=== PATIENT | male | born 1950 | race Caucasian/White ===

== ENCOUNTER 2019-02-21 09:05 | Inpatient (IN) | payer MEDICARE, OTHER ==
[2019-02-21] MEDS ORDERED: NORMAL SALINE 1000 ML 1,000 ML IV ONE ×2 (09:43→13:52)
[2019-02-21] MEDS ORDERED: METOCLOPRAMIDE HCL INJ/PF 10 MG/2 ML SDV IV ONE (09:44)
[2019-02-21 10:05] LABS: ABSOLUTE EOSINOPHILS # (AUTO) 0.1 10^3/uL (0.0-0.6); ABSOLUTE LYMPHOCYTES (AUTO) 0.6 10^3/uL (0.5-4.7); ABSOLUTE MONOCYTES (AUTO) 0.6 10^3/uL (0.1-1.4); ABSOLUTE NEUT (AUTO) 4.2 10^3/uL (1.7-8.2); BASOPHILS % (AUTO) 0.4 % (0-2); EOSINOPHILS % (AUTO) 2.6 % (0-6); HEMOGLOBIN 13.6 g/dL (13.5-17.0); LYMPHOCYTES % (AUTO) 10.5 % (13-45); MEAN CORPUSCULAR HEMOGLOBIN 31.1 pg (27.0-33.4); MEAN CORPUSCULAR HGB CONC 34.9 g/dL (32.0-36.0); MEAN CORPUSCULAR VOLUME 89 fl (80-97); MONOCYTES % (AUTO) 11.3 % (3-13); PLATELET COUNT 201 10^3/uL (150-450); RED BLOOD COUNT 4.38 10^6/uL (4.35-5.55); RED CELL DISTRIBUTION WIDTH 14.4 % (11.5-14.0); SEGMENTED NEUTROPHILS % (AUTO) 75.2 % (42-78); TOTAL CELLS COUNTED % (AUTO) 100 %; WHITE BLOOD COUNT 5.6 10^3/uL (4.0-10.5)
--- NOTE | 2019-02-21 10:05 | ER Document Report ---
Entered by KENZIE DELGADO SCRIBE 02/21/19 0932 Acting as scribe for:CHASE RANGEL MD ED GI/ - General Chief Complaint: Vomiting Stated Complaint: NAUSEA,HEADACHE,VOMITING Time Seen by Provider: 02/21/19 09:28 Information source: Patient Notes: Patient is a 68 year old male with small cell lung cancer with metastasis to the brain that presents today with complaints of nausea/vomiting which began 1-2 hours prior to arrival. Patient reports that he is visiting the area from [place]. Patient was admitted for hyponatremia with a sodium 116 several days ago, discharged on 02/13 with a sodium of 128. Patient states that on 02/16 he had a routine visit to his doctor and his sodium was back down to 124, he was started on salt tablets. Patient states that he is prescribed Zofran for nausea but he does not take it anymore due to causing extreme constipation. Patient denies any abdominal pain. TRAVEL OUTSIDE OF THE [place] IN LAST 30 DAYS: No - Related Data Allergies/Adverse Reactions: amoxicillin Allergy (Verified 02/21/19 09:12) Past Medical History - General Information source: Patient - Social History Smoking Status: Former Smoker Cigarette use (# per day): No Chew tobacco use (# tins/day): No Smoking Education Provided: No Frequency of alcohol use: None Drug Abuse: None Lives with: Family Family History: Reviewed & Not Pertinent Patient has suicidal ideation: No Patient has homicidal ideation: No - Past Medical History Cardiac Medical History: Reports: Hx Hypercholesterolemia, Hx Hypertension Pulmonary Medical History: Reports: Hx Asthma, Hx COPD Renal/ Medical History: Reports: Hx Benign Prostatic Hyperplasia Malignancy Medical History: Reports Hx Lung Cancer - w/ mets to brain (reports recent MRI showed no more mets) Review of Systems - Review of Systems Constitutional: No symptoms reported EENT: No symptoms reported Cardiovascular: No symptoms reported Respiratory: No symptoms reported Gastrointestinal: See HPI, Nausea, Vomiting. denies: Abdominal pain Genitourinary: No symptoms reported Male Genitourinary: No symptoms reported Musculoskeletal: No symptoms reported Skin: No symptoms reported Hematologic/Lymphatic: No symptoms reported Neurological/Psychological: No symptoms reported -: Yes All other systems reviewed and negative Physical Exam - Vital signs Vitals: Temp Pulse Resp BP Pulse Ox 97.4 F 70 15 132/76 H 93 02/21/19 09:11 02/21/19 09:11 02/21/19 09:11 02/21/19 09:11 02/21/19 09:11 - Notes Notes: Physical Exam: General: Alert, appears well. HEENT: Normocephalic. Atraumatic. PERRL. Extraocular movements intact. Oropharynx clear. Neck: Supple. Non-tender. Respiratory: No respiratory distress. Clear and equal breath sounds bilaterally. Cardiovascular: Regular rate and rhythm. Abdominal: Normal Inspection. Non-tender. No distension. Normal Bowel Sounds. Back: No gross abnormalities. Extremities: Moves all four extremities. Upper extremities: Normal inspection. Normal ROM. Lower extremities: Normal inspection. No edema. Normal ROM. Neurological: Normal cognition. AAOx4. Normal speech. Psychological: Normal affect. Normal Mood. Skin: Warm. Dry. Normal color. Course - Re-evaluation Re-evalutation: 02/21/19 12:59 The patient serum sodium is 122.2, and discussing with the patient and his spouse it appears that the nausea may be related to low sodium, and possibly was never related to the Namenda. Since the patient had a sodium 124 a few days ago and was started on salt tablets, this is concerning that his sodium level continues to drop. - Vital Signs Vital signs: Temp Pulse Resp BP Pulse Ox 97.4 F 70 15 132/76 H 93 02/21/19 09:11 02/21/19 09:11 02/21/19 09:11 02/21/19 09:11 02/21/19 09:11 - Laboratory Result Diagrams: 02/21/19 09:51 02/21/19 09:51 Laboratory results interpreted by me: 02/21/19 02/21/19 09:51 09:51 RDW 14.4 H Lymph % (Auto) 10.5 L Sodium 122.2 L Chloride 85 L Creatine Kinase 241 H - EKG Interpretation by [place] EKG shows normal: Sinus rhythm, [place], Intervals, ST-T Waves. abnormal: QRS Complexes - Consider anterior infarct Rate: Normal - 65 Rhythm: NSR [place]/QRS: IVCD When compared to previous EKG there are: Previous EKG unavailable - Consults CHEN Vasquez Time consulted: 12:48 Consulted provider: will come to ER Discharge - Discharge Clinical Impression: Hyponatremia Nausea and vomiting Qualifiers: Vomiting type: unspecified Vomiting Intractability: non-intractable Qualified Code(s): R11.2 - Nausea with vomiting, unspecified Condition: Stable Disposition: ADMITTED OBSERVATION Admitting Provider: Roni (Hospitalist) Unit Admitted: Medical Floor Scribe Attestation: 02/21/19 10:17 I personally performed the services described in the documentation, reviewed and edited the documentation which was dictated to the scribe in my presence, and it accurately records my words and actions. I personally performed the services described in the documentation, reviewed and edited the documentation which was dictated to the scribe in my presence, and it accurately records my words and actions.
[2019-02-21 10:24] LABS: ALBUMIN 4.3 g/dL (3.5-5.0); ALKALINE PHOSPHATASE 46 U/L (38-126); ANION GAP 12 (5-19); ASPARTATE AMINO TRANSFERASE 28 U/L (17-59); BILIRUBIN,DIRECT 0.1 mg/dL (0.0-0.4); BILIRUBIN,TOTAL 0.6 mg/dL (0.2-1.3); BLOOD UREA NITROGEN 12 mg/dL (7-20); CALCIUM 9.3 mg/dL (8.4-10.2); CARBON DIOXIDE 25 mmol/L (22-30); CHLORIDE 85 mmol/L (98-107); CREATINE KINASE 241 U/L (55-170); GLUCOSE 101 mg/dL (75-110); POTASSIUM 4.9 mmol/L (3.6-5.0); TOTAL PROTEIN 6.5 g/dL (6.3-8.2)
[2019-02-21 11:56] LABS: AMORPHOUS SEDIMENT,URINE TRACE /HPF; APPEARANCE,URINE CLOUDY; BILIRUBIN,URINE NEGATIVE (NEGATIVE); COLOR,URINE YELLOW; GLUCOSE, URINE NEGATIVE (NEGATIVE); KETONES,URINE NEGATIVE (NEGATIVE); LEUKOCYTE ESTERASE,URINE NEGATIVE (NEGATIVE); NITRITE,URINE NEGATIVE (NEGATIVE); PROTEIN,URINE NEGATIVE (NEGATIVE); URINE SPECIFIC GRAVITY 1.014; UROBILINOGEN,URINE NEGATIVE mg/dL (<2.0)
[2019-02-21] MEDS ORDERED: NORMAL SALINE 1000 ML 1,000 ML IV PRN (13:54)
[2019-02-21] MEDS ORDERED: MAGNESIUM HYDROXIDE SUSP 30 ML UDCUP PO PRN (14:06)
[2019-02-21] MEDS ORDERED: ACETAMINOPHEN 325 MG TABLET PO PRN (14:06)
--- NOTE | 2019-02-21 14:23 | PDOC H&P ---
History of Present Illness Admission Date/PCP: 02/21/19 13:07 History of Present Illness: Amaya KIM is a 68 year old male who comes in with history of vomiting x1 today. He is down here vacationing from [place]. Scheduled to return to [place] in 1 week. patient has a long and complicated history began with being diagnosed with small cell lung cancer Kristina I believe in May 2018. In October he was diagnosed with mets to the brain and underwent radiation for 10 days. Recently February 11 and he was in an emergency room and admitted for sodium of 116 however at the time of discharge her to gone up to 128 there is some question as to whether this hyponatremia was caused by Namenda or Zofran or by his brain mets. He feels like the Zofran caused constipation. At any rate last week on the in the doctor's office his sodium was 124, and his doctor in [place] told him it was safe to come down here to [place] to vacation. This morning after eating and oriented she got sick and vomited x1 when he came to the emergency room his sodium was 122 Was called because ER physician did not know whether the patient vomited because of his sodium of 122 for some other reason. Patient states that last week when he was seen in the doctor's office with his sodium 124 he was given salt tablets to take patient has had no vomiting since this morning patient states he is not nauseated at this time he was given Reglan in the ER I believe the patient was a lso given a liter of fluids in the ER.. 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 Pulmonary Medical History: Reports: Asthma, Chronic Obstructive Pulmonary Disease (COPD), Other - Small cell lung cancer Neurological Medical History: Reports: Other - Brain mets Malignancy Medical History: Reports: Lung Cancer - w/ mets to brain (reports recent MRI showed no more mets) Psychiatric Medical History: Reports: None Social History Lives with: Family Smoking Status: Former Smoker - Advance Directive Resuscitation Status: Full Code Family History Family History: Reviewed & Not Pertinent Parental Family History Reviewed: No Children Family History Reviewed: No Sibling(s) Family History Reviewed.: No Medication/Allergy Allergies/Adverse Reactions: amoxicillin Allergy (Verified 02/21/19 09:12) Review of Systems Constitutional: PRESENT: other - No nausea now. ABSENT: chills, fever(s), headache(s), weight gain, weight loss Respiratory: ABSENT: cough, hemoptysis Gastrointestinal: ABSENT: abdominal pain, constipation, diarrhea, hematemesis, hematochezia, nausea, vomiting Neurological: PRESENT: other - Slight headache. ABSENT: abnormal gait, abnormal speech, confusion, dizziness, focal weakness, syncope Psychiatric: ABSENT: anxiety, depression, homidical ideation, suicidal ideation Physical Exam Vital Signs: Temp Pulse Resp BP Pulse Ox 97.4 F 70 15 132/76 H 93 02/21/19 09:11 02/21/19 09:11 02/21/19 09:11 02/21/19 09:11 02/21/19 09:11 Intake & Output 02/20/19 02/21/19 02/22/19 06:59 06:59 06:59 Intake Total 1000 Balance 1000 Weight 99.9 kg General appearance: PRESENT: no acute distress, other - is in the room Respiratory exam: PRESENT: clear to auscultation clay. ABSENT: rales, rhonchi, wheezes Cardiovascular exam: PRESENT: RRR. ABSENT: diastolic murmur, rubs, systolic murmur Pulses: PRESENT: normal dorsalis pedis pul GI/Abdominal exam: PRESENT: normal bowel sounds, soft. ABSENT: distended, guarding, mass, organolmegaly, rebound, tenderness Neurological exam: PRESENT: alert, awake, oriented to person, oriented to place, oriented to time, oriented to situation, CN II-XII grossly intact. ABSENT: motor sensory deficit Psychiatric exam: PRESENT: appropriate affect, normal mood. ABSENT: homicidal ideation, suicidal ideation Results Laboratory Results: 02/21/19 09:51 02/21/19 09:51 02/21/19 02/21/19 02/21/19 09:51 09:51 11:30 WBC 5.6 RBC 4.38 Hgb 13.6 Hct 39.0 MCV 89 MCH 31.1 MCHC 34.9 RDW 14.4 H Plt Count 201 Seg Neutrophils % 75.2 Sodium 122.2 L Potassium 4.9 Chloride 85 L Carbon Dioxide 25 Anion Gap 12 BUN 12 Creatinine 0.69 Est GFR ( Amer) > 60 Glucose 101 Calcium 9.3 Magnesium 1.9 Total Bilirubin 0.6 AST 28 Alkaline Phosphatase 46 Total Protein 6.5 Albumin 4.3 Urine Color YELLOW Urine Appearance CLOUDY Urine pH 7.0 Ur Specific [place] 1.014 Urine Protein NEGATIVE Urine Glucose (UA) NEGATIVE Urine Ketones NEGATIVE Urine Blood NEGATIVE Urine Nitrite NEGATIVE Ur Leukocyte Esterase NEGATIVE Urine WBC (Auto) 2 02/21/19 02/21/19 09:51 09:51 Creatine Kinase 241 H Troponin I < 0.012 Assessment and Plan - Diagnosis (1) Hypertension Is this a current diagnosis for this admission?: Yes Plan: Tells me he takes lisinopril although the dosage is not known at this time. Blood pressure in the ER is 132/76 (2) Small cell lung cancer Is this a current diagnosis for this admission?: Yes Plan: Patient has had chemotherapy back in May 2018. Patient is scheduled for CT scan of abdomen and chest in March (3) Metastasis to brain Is this a current diagnosis for this admission?: Yes Plan: Patient had 10 days of therapy in October and November of this year (4) Hyponatremia Is this a current diagnosis for this admission?: Yes Plan: Patient's sodium today is 122 prior to leaving [place] 5 days ago is 124 and about a week before that after discharge from the hospital it was 128 Patient states when he went into the hospital for hyponatremia weeks ago it was 116 (5) Nausea and vomiting Qualifiers: Vomiting type: unspecified Vomiting Intractability: non-intractable Qualified Code(s): R11.2 - Nausea with vomiting, unspecified Is this a current diagnosis for this admission?: Yes Plan: She states he vomited one time this morning and at the present time has no nausea - Time Time Spent with patient: 35 or more minutes
[2019-02-21] MEDS: DOCUSATE SODIUM 100 MG CAPSULE PO SCH (16:02)
[2019-02-21] MEDS: ENOXAPARIN SODIUM INJ 40 MG/0.4 ML DISP.SYRIN SUBCUT SCH (16:02)
[2019-02-21] MEDS: METOCLOPRAMIDE HCL 10 MG TABLET PO SCH ×2 (16:13→23:13)
--- NOTE | 2019-02-21 17:37 | EKG REPORT ---
SEVERITY:- ABNORMAL ECG - SINUS RHYTHM NONSPECIFIC INTRAVENTRICULAR CONDUCTION DELAY CONSIDER ANTERIOR INFARCT : Confirmed by: Pedro Cruz MD 21-Feb-2019 17:37:00
--- NOTE | 2019-02-21 17:47 | RADIOLOGY REPORT (SQ) ---
EXAM DESCRIPTION: CHEST SINGLE VIEW COMPLETED DATE/TIME: 02/21/2019 5:28 pm REASON FOR STUDY: small cell ca COMPARISON: None. TECHNIQUE: Single frontal radiographic view of the chest acquired. NUMBER OF VIEWS: One view. LIMITATIONS: None. FINDINGS: LUNGS AND PLEURA: No pneumothorax. Left basilar subsegmental atelectasis and small pleura l effusion. MEDIASTINUM AND HILAR STRUCTURES: Normal contour. HEART AND VASCULAR STRUCTURES: Normal size. BONES: No acute findings. HARDWARE: None in the chest. OTHER: No other significant finding. IMPRESSION: Left basilar subsegmental atelectasis and small pleural effusion. TECHNICAL DOCUMENTATION: JOB ID: [id number] [id number] 2010 [place] [employer]- All Rights Reserved Reading location - IP/workstation name: [employer]
[2019-02-21 17:55] LABS: ANION GAP 11 (5-19); BLOOD UREA NITROGEN 10 mg/dL (7-20); CARBON DIOXIDE 24 mmol/L (22-30); CHLORIDE 87 mmol/L (98-107); GLUCOSE 99 mg/dL (75-110); POTASSIUM 4.6 mmol/L (3.6-5.0)
[2019-02-21] MEDS: FAMOTIDINE 20 MG TABLET PO SCH (23:13)
[2019-02-22] MEDS: PROMETHAZINE HCL INJ 25 MG/1 ML VIAL IV PRN ×2 (05:37→13:00)
[2019-02-22 06:32] LABS: BLOOD UREA NITROGEN 11 mg/dL (7-20); CALCIUM 8.8 mg/dL (8.4-10.2); CARBON DIOXIDE 23 mmol/L (22-30); CHLORIDE 85 mmol/L (98-107); GLUCOSE 90 mg/dL (75-110); POTASSIUM 4.4 mmol/L (3.6-5.0)
[2019-02-22 06:33] LABS: ANION GAP 11 (5-19)
[2019-02-22] MEDS: METOCLOPRAMIDE HCL 10 MG TABLET PO SCH ×4 (08:07→21:37)
[2019-02-22] MEDS: DOCUSATE SODIUM 100 MG CAPSULE PO SCH (09:38)
[2019-02-22] MEDS: ENOXAPARIN SODIUM INJ 40 MG/0.4 ML DISP.SYRIN SUBCUT SCH (09:38)
[2019-02-22] MEDS: FAMOTIDINE 20 MG TABLET PO SCH ×2 (10:20→21:38)
[2019-02-22] MEDS: LISINOPRIL 10 MG TABLET PO SCH (10:20)
[2019-02-22] MEDS: LORATADINE 10 MG TABLET PO SCH (10:21)
[2019-02-22 11:23] LABS: OSMOLALITY,URINE 467 mOsm/kg (300-900)
[2019-02-22 11:31] LABS: URINE SODIUM 154 mmol/L (30-90)
--- NOTE | 2019-02-22 12:38 | PDOC PROGRESS REPORT ---
Subjective Progress Note for:: 02/22/19 Subjective:: Patient is being admitted for hyponatremia and SIADH. Reason For Visit: HYPONATREMIA,SMALL CELL LUNG CANCER,BRAIN METS, Physical Exam Vital Signs: Temp Pulse Resp BP Pulse Ox 97.7 F 64 15 132/66 H 97 02/22/19 08:21 02/22/19 08:21 02/22/19 08:21 02/22/19 08:21 02/22/19 08:21 Intake & Output 02/21/19 02/22/19 02/23/19 06:59 06:59 06:59 Intake Total 3240 240 Balance 3240 240 Weight 92.9 kg General appearance: PRESENT: no acute distress, other - Patient had one episode of vomiting yesterday morning prior to coming to the emergency room but no vomiting since. Patient was nauseated last night and received his Reglan but also received a dose of Phenergan which he stated seem to help Respiratory exam: PRESENT: clear to auscultation clay. ABSENT: rales, rhonchi, wheezes Cardiovascular exam: PRESENT: RRR. ABSENT: diastolic murmur, rubs, systolic murmur Neurological exam: PRESENT: alert, awake, oriented to person, oriented to place, oriented to time, oriented to situation, CN II-XII grossly intact, other - Patient has no neurologic deficits. ABSENT: motor sensory deficit Psychiatric exam: PRESENT: appropriate affect, normal mood, other - Patient appears very relaxed and calm. ABSENT: homicidal ideation, suicidal ideation Results Laboratory Results: 02/21/19 09:51 02/22/19 05:52 02/21/19 02/21/19 02/21/19 09:51 11:30 17:10 Sodium 121.6 L Potassium 4.6 Chloride 87 L Carbon Dioxide 24 Anion Gap 11 BUN 10 Creatinine 0.65 Est GFR ( Amer) > 60 Glucose 99 Serum Osmolality 251 L Calcium 9.0 Magnesium Urine Osmolality 600 02/22/19 02/22/19 02/22/19 05:52 05:52 10:35 Sodium 118.9 L* Potassium 4.4 Chloride 85 L Carbon Dioxide 23 Anion Gap 11 BUN 11 Creatinine 0.68 Est GFR ( Amer) > 60 Glucose 90 Serum Osmolality 243 L Calcium 8.8 Magnesium 1.8 Urine Osmolality 467 02/21/19 02/21/19 09:51 09:51 Creatine Kinase 241 H Troponin I < 0.012 Impressions: Chest X-Ray 02/21/19 00:00 IMPRESSION: Left basilar subsegmental atelectasis and small pleural effusion. Assessment and Plan - Diagnosis (1) Hypertension Is this a current diagnosis for this admission?: Yes Plan: Tells me he takes lisinopril although the dosage is not in chart not known at this time. Blood pressure in the ER is 132/76 02/22/2019 morning at approximately 8:00 blood pressure is 132/66. Patient's home meds were in the chart this morning therefore his lisinopril 10 mg daily was resumed (2) Small cell lung cancer Is this a current diagnosis for this admission?: Yes Plan: Patient has had chemotherapy back in May 2018. Patient is scheduled for CT scan of abdomen and chest in 02/22/2019 patient's chest x-ray from yesterday single view portable showed just some minimal atelectasis and a small pleural effusion on the left (3) Metastasis to brain Is this a current diagnosis for this admission?: Yes Plan: Patient had 10 days of therapy in October and November of this year 02/22/2019 CT head scan nor MRI brain scan have been ordered. No previous studies to compare to and patient is neurologically intact. (4) Hyponatremia Is this a current diagnosis for this admission?: Yes Plan: Patient's sodium today is 122 prior to leaving [place] 5 days ago is 124 and about a week before that after discharge from the hospital it was 128 Patient states when he went into the hospital for hyponatremia weeks ago it was 116 02/22/2019 patient's labs are being followed closely. Unfortunately did not get a report back on his urine sodium until 8 PM last night. Patient does not appear to be dehydrated or hypovolemic agraffe sodium on admission was 122.227 hours later is 121.6 and this morning about 18 hours later from the original it was 118.9 Initial serum osmolality was 251 today it is gone down to 243 Initial urine osmolality was 600 this morning is gone down to 467 Initial urine sodium last night was 189 and this morning it is gone down to 154 Patient was placed on the thousand cc fluid restriction last night After discussing the case with Dr. Morales he has made a good suggestion to consult nephrology. This is been placed in the chart. I had a discussion with the patient and his this morning and told him that it would take time for this to correct. Certainly we do not want to overshoot in create a problem by giving him too quickly a higher sodium level since he is asymptomatic at this time. Will wait nephrology's opinion, and continue fluid restriction in the meantime. Certainly have considered all options including 3% sodium fluids, as well as medication such as tolvaptan. Inform the patient that nephrology has been consulted and he seems satisfied with that. (5) Nausea and vomiting Qualifiers: Vomiting type: unspecified Vomiting Intractability: non-intractable Qualified Code(s): R11.2 - Nausea with vomiting, unspecified Is this a current diagnosis for this admission?: Yes Plan: He states he vomited one time this morning and at the present time has no nausea 02/22/2019 patient states he has had no vomiting since admission, though he was nauseated last night patient received Phenergan 12.5 mg IV at approximately 530 this morning in addition to his scheduled Reglan and Pepcid - Time Time Spent with patient: 35 or more minutes
--- NOTE | 2019-02-22 18:01 | Progress Note ---
Provider Note Provider Note: For some reason Dr. Fairbanks did not get the consult through the computer Dr. Fairbanks the calciner operator helper viewed the patient's lab work and we discussed his case for 15 minutes [address] the phone[address] Dr. Fairbanks is going to review the lab work from [facility] and then make recommendations concerning siadh. Change fluid restrictions to 750 mL's and 24 period. This will be down from 1000 Magdi suggest the possibility of giving a 3% sodium IV solution over 4 hours, patient however is reluctant to do this and this will be discussed with Dr. Fairbanks. I discussed this with the patient and his family in the room [facility]. I told him I would talk to them after [facility]'s lab work and after I speak with Dr. Fairbanks
[2019-02-22 18:52] LABS: ANION GAP 12 (5-19); BLOOD UREA NITROGEN 13 mg/dL (7-20); CALCIUM 8.9 mg/dL (8.4-10.2); CARBON DIOXIDE 24 mmol/L (22-30); CHLORIDE 82 mmol/L (98-107); GLUCOSE 108 mg/dL (75-110); POTASSIUM 4.2 mmol/L (3.6-5.0)
--- NOTE | 2019-02-22 20:15 | Progress Note ---
Provider Note Provider Note: 02/22/[address] Magdi frankel after the most recent labs sodium is now 117.7 chloride 82 serum osmolality 242 her and studies are pending. Dr. Fairbanks suggested a 3% sodium solution however I informed him that the patient really would rather not do this treatment asked about alternative. Graph Dr. Fairbanks had spoken about this and so Dr. Fairbanks recommended Samsca, Tolvaptan, 15 mg daily. We are going to check labs every 12 hours that would include a Chem-7 serum osmolality urine osmolality and a urine sodium based on the increase in serum sodium as to whether or not the patient gets another dose of this medication tomorrow evening. Magdi is going to see the patient tomorrow morning officially although he is spent a great deal of time reviewing the chart and discussing the case with me already.. The patient and his and I discussed this treatment option marlys patient seems satisfied as the plan was outlined to him Goal is to try to get his sodium up into the mid 120s of that he can be discharged and make the trip back to [place] to see his oncologist. Patient's fluid restriction is now 750 mL's and actually changed order this afternoon already down from 1000 Dx. SIADH, small cell carcinoma, history of brain metastasis, hypertension
[2019-02-22] MEDS ORDERED: TOLVAPTAN 15 MG TABLET PO SCH (20:30)
[2019-02-22] MEDS ORDERED: TAMSULOSIN HCL 0.4 MG CAP.SR.24H PO SCH (22:00)
[2019-02-23 05:54] LABS: ANION GAP 11 (5-19); BLOOD UREA NITROGEN 11 mg/dL (7-20); CALCIUM 9.7 mg/dL (8.4-10.2); CARBON DIOXIDE 25 mmol/L (22-30); CHLORIDE 90 mmol/L (98-107); GLUCOSE 94 mg/dL (75-110); POTASSIUM 4.6 mmol/L (3.6-5.0)
[2019-02-23] MEDS: METOCLOPRAMIDE HCL 10 MG TABLET PO SCH (08:21)
[2019-02-23 09:09] VITALS: BP 107/58
[2019-02-23 09:14] LABS: URINE SODIUM 7 mmol/L (30-90)
[2019-02-23 09:35] LABS: OSMOLALITY,URINE 93 mOsm/kg (300-900)
[2019-02-23] MEDS: DOCUSATE SODIUM 100 MG CAPSULE PO SCH (10:23)
[2019-02-23] MEDS: ENOXAPARIN SODIUM INJ 40 MG/0.4 ML DISP.SYRIN SUBCUT SCH (10:23)
[2019-02-23] MEDS: LISINOPRIL 10 MG TABLET PO SCH (10:26)
[2019-02-23] MEDS: FAMOTIDINE 20 MG TABLET PO SCH (10:27)
[2019-02-23] MEDS: LORATADINE 10 MG TABLET PO SCH (10:27)
--- NOTE | 2019-02-23 14:59 | PDOC CONSULTATION ---
Consultation Consult Date: 02/23/19 Provider Consulted: Shoshana BRITO Consult reason:: Hyponatremia History of Present Illness Admission Date/PCP: 02/22/19 11:15 History of Present Illness: Amaya KIM is a 68 year old male with history of metastatic non-small cell cancer of the lungs diagnosed in April 2018 treated with chemo was admitted with history of feeling weak and a couple of episodes of vomiting. He is visiting here from [place] on a vacation. He says his labs had shown normal sodium in the upper 130s till about 3 weeks ago when he was found to have a sodium that dropped as low as 117. He was given certain medications and fluids and his last sodium before he left [place] was 124. He says he was told to take salt tablets and if he felt bad he was to visit the local ER. The patient began to get progressively weak approximately a day prior to his visit to the ER along with vomiting and was found to have a sodium of 120. He was begun on IV fluids and then his sodium dropped to 117. Patient now has had his normal saline withheld and has been put on fluid restrictions. Yesterday, I had a long chat with the hospitalist Malcom mcduffie and decided that patient should be given some amount of 3% saline which the patient declined. In lieu of that he was begun on tolvaptan 15 mg x 1 dose was given yesterday. Today his sodium is 127 and he feels back to his baseline. He states he does not feel weak and tired and would like to go back and enjoys few more days of vacation before he leaves back for [place] this coming Friday. His and son is by the bedside. He has had a good meal today and is happy with the fluid restrictions. 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 Pulmonary Medical History: Reports: Asthma, Chronic Obstructive Pulmonary Disease (COPD), Other - Small cell lung cancer Neurological Medical History: Reports: Other - Brain mets Renal/ Medical History: Reports: Benign Prostatic Hyperplasia Malignancy Medical History: Reports: Lung Cancer - w/ mets to brain (reports recent MRI showed no more mets) Psychiatric Medical History: Reports: None Social History Lives with: Family Smoking Status: Former Smoker - Advance Directive Resuscitation Status: Full Code Family History Parental Family History Reviewed: No Children Family History Reviewed: No Sibling(s) Family History Reviewed.: No Medication/Allergy Home Medications: Fluticasone/Salmeterol [Fluticasone-Salmeterol 113-14] 1 puff IH Q12 02/21/19 Ipratropium/Albuterol Sulfate [Combivent Respimat 4 gm Mdi] 1 puff IH TIDP PRN MDD 4 PUFFS 02/21/19 Lisinopril [Prinivil 10 mg Tablet] 10 mg PO DAILY 02/21/19 Loratadine [Claritin 10 mg Tablet] 10 mg PO DAILY 02/21/19 Rosuvastatin Calcium 40 mg PO QHS 02/21/19 Tamsulosin HCl [Flomax 0.4 mg Cap.sr] 0.4 mg PO DAILY 02/21/19 Zolpidem Tartrate [Ambien 5 mg Tablet] 10 mg PO HSP PRN 02/21/19 Allergies/Adverse Reactions: amoxicillin Allergy (Verified 02/21/19 09:12) Review of Systems Constitutional: PRESENT: fatigue, weakness. ABSENT: anorexia, chills, fever(s), headache(s), night sweats Nose, Mouth, and Throat: ABSENT: mouth pain, sore throat Cardiovascular: ABSENT: chest pain, dyspnea on exertion, edema, orthropnea, palpitations Respiratory: ABSENT: dyspnea, hemoptysis Gastrointestinal: ABSENT: abdominal pain, bloating, coffee ground emesis, diarrhea, dysphagia, heartburn, hematemesis, hematochezia Integumentary: ABSENT: lesions, pruritus, rash Neurological: ABSENT: abnormal movements, abnormal speech, confusion, convulsions, focal weakness, frequent falls, lack of coordination Psychiatric: ABSENT: suicidal ideation Endocrine: ABSENT: flushing, polydipsia Hematologic/Lymphatic: ABSENT: easy bleeding, easy bruising, lymphadenopathy Physical Exam Vital Signs: Temp Pulse Resp BP Pulse Ox 98.2 F 69 16 107/58 L 95 02/23/19 11:25 02/23/19 11:25 02/23/19 11:25 02/23/19 07:34 02/23/19 11:25 Intake & Output 02/22/19 02/23/19 02/24/19 06:59 06:59 06:59 Intake Total 3240 1125 Balance 3240 1125 Weight 92.9 kg 97.4 kg General appearance: PRESENT: no acute distress Eye exam: PRESENT: EOMI, PERRLA Ear exam: PRESENT: normal external ear exam Mouth exam: PRESENT: moist, neck supple Neck exam: ABSENT: lymphadenopathy, meningismus, tenderness, thyromegaly, tr acheal deviation Respiratory exam: PRESENT: clear to auscultation clay. ABSENT: crackles Cardiovascular exam: PRESENT: +S1, +S2 GI/Abdominal exam: PRESENT: normal bowel sounds, soft. ABSENT: organomegaly, tenderness Extremities exam: ABSENT: pedal edema Neurological exam: PRESENT: alert, awake, oriented to person, oriented to place, oriented to time Psychiatric exam: PRESENT: appropriate affect Skin exam: ABSENT: erythema, mottled, rash Results Laboratory Results: 02/21/19 09:51 02/23/19 04:54 02/22/19 02/22/19 02/22/19 17:56 17:56 19:17 Sodium 117.7 L* Potassium 4.2 Chloride 82 L Carbon Dioxide 24 Anion Gap 12 BUN 13 Creatinine 0.82 Est GFR ( Amer) > 60 Glucose 108 Serum Osmolality 242 L Calcium 8.9 Magnesium Urine Osmolality 530 02/23/19 02/23/19 02/23/19 04:54 04:54 05:40 Sodium 126.1 L Potassium 4.6 Chloride 90 L Carbon Dioxide 25 Anion Gap 11 BUN 11 Creatinine 0.83 Est GFR ( Amer) > 60 Glucose 94 Serum Osmolality 255 L Calcium 9.7 Magnesium 2.2 Urine Osmolality Cancelled 02/23/19 02/23/19 07:16 08:21 Sodium Potassium Chloride Carbon Dioxide Anion Gap BUN Creatinine Est GFR ( Amer) Glucose Serum Osmolality Calcium Magnesium Urine Osmolality Cancelled 93 L 02/21/19 02/21/19 09:51 09:51 Creatine Kinase 241 H Troponin I < 0.012 Impressions: Chest X-Ray 02/21/19 00:00 IMPRESSION: Left basilar subsegmental atelectasis and small pleural effusion. Assessment & Plan - Diagnosis (1) Hyponatremia Is this a current diagnosis for this admission?: Yes Plan: Patient has a SIADH. He has responded to fluid restriction and tolvaptan. Patient is back to baseline as his sodium has been in the mid to high 120s for the last 2 to 3 weeks. I am okay in discharging the patient on tolvaptan 15 mg every other day for which I given him prescription. I have also asked to get his labs done this and then next Friday after he reaches [place]. Advised patient to call me on evening to discuss labs over the telephone. Advised the patient and his that he should go to the ER if he feels not his usual self in the next few days while he is here.Discussed the patient questions at length and answered questions from his and son. Also discussed the case with Dr. Murillo who is the covering hospitalist. (2) Small cell lung cancer Is this a current diagnosis for this admission?: Yes Plan: Metastatic. Status post chemo with recent mets to the brain for which she had extensive whole brain radiation.
--- NOTE | 2019-02-23 15:13 | PDOC DISCHARGE SUMMARY ---
General - Admit/Disc Date/PCP Admission Date/Primary Care Provider: 02/22/19 11:15 Discharge Date: 02/23/19 - Discharge Diagnosis (1) Hyponatremia Is this a current diagnosis for this admission?: Yes Summary: Dr. Fairbanks was consulted, and when he did not respond to normal saline he was given some tolvaptan with good effect. He will take it every other day while he was here visiting family and will have labs redrawn on to be followed up by Dr. Fairbanks. (2) Nausea and vomiting Is this a current diagnosis for this admission?: Yes Summary: Resolved once his sodium came up (3) Small cell lung cancer Is this a current diagnosis for this admission?: Yes Summary: He will follow-up with his oncologist back in [place] - Additional Information Resuscitation Status: Full Code Discharge Diet: Cardiac Discharge Activity: Balance Activity w/Rest, Slowly Increase Activity Home Medications: Fluticasone/Salmeterol [Fluticasone-Salmeterol 113-14] 1 puff IH Q12 02/21/19 Ipratropium/Albuterol Sulfate [Combivent Respimat 4 gm Mdi] 1 puff IH TIDP PRN MDD 4 PUFFS 02/21/19 Lisinopril [Prinivil 10 mg Tablet] 10 mg PO DAILY 02/21/19 Loratadine [Claritin 10 mg Tablet] 10 mg PO DAILY 02/21/19 Rosuvastatin Calcium 40 mg PO QHS 02/21/19 Tamsulosin HCl [Flomax 0.4 mg Cap.sr] 0.4 mg PO DAILY 02/21/19 Zolpidem Tartrate [Ambien 5 mg Tablet] 10 mg PO HSP PRN 02/21/19 History of Present Illness History of Present Illness: Amaya KIM is a 68 year old male who comes in with history of vomiting x1 today. He is down here vacationing from [place]. Scheduled to return to [facility] in 1 week. patient has a long and complicated history began with being diagnosed with small cell lung cancer Kristina I believe in May 2018. In October he was diagnosed with mets to the brain and underwent radiation for 10 days. Recently February 11 and he was in an emergency room and admitted for sodium of 116 however at the time of discharge her to gone up to 128 there is some q uestion as to whether this hyponatremia was caused by Namenda or Zofran or by his brain mets. He feels like the Zofran caused constipation. At any rate last week on the in the doctor's office his sodium was 124, and his doctor in [place] told him it was safe to come down here to [place] to vacation. This morning after eating and oriented she got sick and vomited x1 when he came to the emergency room his sodium was 122 Was called because ER physician did not know whether the patient vomited because of his sodium of 122 for some other reason. Patient states that last week when he was seen in the doctor's office with his sodium 124 he was given salt tablets to take patient has had no vomiting since this morning patient states he is not nauseated at this time he was given Reglan in the ER I believe the patient was also given a liter of fluids in the ER.. Will be put in the hospital observation status for IV fluids and evaluation of hyponatremia Hospital Course Hospital Course: He was given some normal saline without much effect and then Dr. Fairbanks was consulted and gave him some tolvaptan. He had a good response that in his sodium came up in the upper 120s, where it seems like he finds his current baseline. Dr. Fairbanks will have him take another dose of it tomorrow and then get some labs checked on . Dr. Fairbanks will then follow-up with the patient regarding whether or not he should be taking any more before he returns to his doctors in [place] over the weekend. Once his sodium came up he had no more nausea or vomiting. His labs and examination were reassuring and he was discharged in good condition. Physical Exam Vital Signs: Temp Pulse Resp BP Pulse Ox 98.2 F 69 16 107/58 L 95 02/23/19 11:25 02/23/19 11:25 02/23/19 11:25 02/23/19 07:34 02/23/19 11:25 Intake & Output 02/22/19 02/23/19 02/24/19 06:59 06:59 06:59 Intake Total 3240 1125 Balance 3240 1125 Weight 92.9 kg 97.4 kg General appearance: PRESENT: no acute distress, cooperative, disheveled Respiratory exam: PRESENT: clear to auscultation clay, symmetrical, unlabored. ABSENT: accessory muscle use, chest wall tenderness, crackles, prolonged expiratory phas, rhonchi, tachypnea, wheezes Cardiovascular exam: PRESENT: RRR, +S1, +S2 Pulses: PRESENT: normal carotid pulses Vascular exam: PRESENT: normal capillary refill GI/Abdominal exam: PRESENT: normal bowel sounds, soft. ABSENT: distended, guarding, rebound, tenderness Extremities exam: ABSENT: clubbing, pedal edema Musculoskeletal exam: PRESENT: normal inspection. ABSENT: deformity Neurological exam: PRESENT: alert, awake, oriented to person, oriented to place, oriented to time, oriented to situation Psychiatric exam: PRESENT: appropriate affect, normal mood Skin exam: PRESENT: dry, warm Results Laboratory Results: 02/21/19 09:51 02/23/19 04:54 02/22/19 02/22/19 02/22/19 17:56 17:56 19:17 Sodium 117.7 L* Potassium 4.2 Chloride 82 L Carbon Dioxide 24 Anion Gap 12 BUN 13 Creatinine 0.82 Est GFR ( Amer) > 60 Glucose 108 Serum Osmolality 242 L Calcium 8.9 Magnesium Urine Osmolality 530 02/23/19 02/23/19 02/23/19 04:54 04:54 05:40 Sodium 126.1 L Potassium 4.6 Chloride 90 L Carbon Dioxide 25 Anion Gap 11 BUN 11 Creatinine 0.83 Est GFR ( Amer) > 60 Glucose 94 Serum Osmolality 255 L Calcium 9.7 Magnesium 2.2 Urine Osmolality Cancelled 02/23/19 02/23/19 07:16 08:21 Sodium Potassium Chloride Carbon Dioxide Anion Gap BUN Creatinine Est GFR ( Amer) Glucose Serum Osmolality Calcium Magnesium Urine Osmolality Cancelled 93 L 02/21/19 02/21/19 09:51 09:51 Creatine Kinase 241 H Troponin I < 0.012 Impressions: Chest X-Ray 02/21/19 00:00 IMPRESSION: Left basilar subsegmental atelectasis and small pleural effusion. Qualifiers PATIENT BEING DISCHARGED WITH ANY OF THE FOLLOWING DIAGNOSIS: No Acute Heart Failure - Is this a Heart Failure Patient?: No Plan Time Spent: Greater than 30 Minutes
== END 2019-02-23 11:45 | disposition home or self-care (01) | DRG 644 ==
LOC: ER 09:05 → EH 13:07 → 4N 14:47 → OBSVTOIN 02-22 11:15
PROVIDERS: ADMIT Family Medicine; ATTEND Family Medicine
DX: E22.2 Syndrome of inappropriate secretion of antidiuretic hormone (principal); C34.90 Malignant neoplasm of unspecified part of unspecified bronchus or lung; C79.31 Secondary malignant neoplasm of brain; I10 Essential (primary) hypertension; E78.5 Hyperlipidemia, unspecified; Z92.3 Personal history of irradiation; Z79.899 Other long term (current) drug therapy; Z86.79 Personal history of other diseases of the circulatory system; Z87.891 Personal history of nicotine dependence; Z88.0 Allergy status to penicillin
CPT/HCPCS: 36415; 71045; 80048; 80053; 81001; 82550; 83735; 83930; 83935; 84300; 84484; 85025; 93005; 93010; 96361; 96374; 99285; A9270-GY; G0378; J2550; J2765; J7030

== ENCOUNTER → 2019-02-25 | Outpatient (CLI) | payer MEDICARE, OTHER ==
[2019-02-25 08:40] LABS: ANION GAP 13 (5-19); BLOOD UREA NITROGEN 32 mg/dL (7-20); CALCIUM 9.7 mg/dL (8.4-10.2); CARBON DIOXIDE 26 mmol/L (22-30); CHLORIDE 94 mmol/L (98-107); GLUCOSE 106 mg/dL (75-110); POTASSIUM 4.4 mmol/L (3.6-5.0)
== END ==
LOC: OD 07:19
PROVIDERS: ATTEND Internal Medicine Nephrology
DX: E87.6 Hypokalemia (principal)
CPT/HCPCS: 36415; 80048